=== PATIENT | male | born 1985 | race Caucasian/White ===

== ENCOUNTER 2019-10-18 21:39 | Emergency (ER) | payer OTHER ==
[~2019-10-18] VITALS: Ht 180.3 cm; Wt 117.9 kg
--- NOTE | 2019-10-19 02:18 | Diagnostic Imaging Report ---
KNEE RIGHT THREE VIEWS - 3 views HISTORY: Pain. COMPARISON: None available. FINDINGS: Bones: No acute displaced fracture. Osseous alignment is within normal limits. Joints: The joint spaces are well-maintained. Soft tissues: The soft tissues appear unremarkable. Questionable small right knee joint effusion. IMPRESSION: No acute radiographic abnormality. Signed by: Vik Irene MD on 10/19/2019 2:15 AM
--- NOTE | 2019-10-19 02:54 | Emergency Department Note ---
History of Present Illnes History of Present Illness Chief Complaint: Extremity Trauma/Pain History of Present Illness This is a 34 year old male arrives to the ED with complaints of right knee pain for several weeks. Patient's states when he went to the [facility] he was told metatarsal manipulative provided no further imaging. Patient states he was told to come to the emergency department for further workup.. Chief Complaint Comment 34 Y/O MALE PT AAOX3 PRESENTS TO THE ER C/O RT KNEE PAIN ONSET X3 WEEKS [employer]; PT STATES HE WAS AT THE [facility] LAST WEEK AND TOLD HE POSSIBLY HAS A TORN MINISCUS; PT STATES HE WAS TOLD TO COME TO THE ER IF PAIN WORSENED; NAD NOTED AT THIS TIME; RESP EVEN/UNLABORED; ER MD IN TRIAGE FOR INITIAL EVAL. Historian: Patient Arrival Mode: Car Onset (how long ago): week(s) Timing of current episode: intermittent Progression: unchanged Chronicity: recurrent Context: Denies trauma/injury Relieving factors: none Exacerbating factors: none Past Medical/Family History Physician Review I have reviewed the patient's past medical and family history. Any updates have been documented here. Past Medical History Recent Fever: No Clinical Suspicion of Infectio: No New/Unexplained Change in Ment: No Past Medical History: GERD Other Surgery: RT KNEE SX Social History Smoking Cessation: Current every day smoker Alcohol Use: Social Any Illegal Drug Use: No TB Exposure/Symptoms: No Physically hurt or threatened: No Other Last Tetanus: UTD Any Pre-Existing Lines (PICC,: No Is patient up to date on immun: Yes Last Flu: UTD Last Pneumovax: UNK Review of Systems Review of Systems Constitutional: Reports no symptoms EENTM: Reports no symptoms Cardiovascular: Reports no symptoms Respiratory: Reports no symptoms Gastrointestinal: Reports no symptoms Genitourinary: Reports no symptoms Musculoskeletal: Reports as per HPI, Reports joint pain, Reports muscle pain Integumentary: Reports no symptoms Neurological: Reports no symptoms Psychological: Reports no symptoms Endocrine: Reports no symptoms Hematological/Lymphatic: Reports no symptoms Physical Exam Related Data Allergies: Coded Allergies: No Known Allergies (Unverified , 10/19/19) Triage Vital Signs Vital Signs Date Time Temp Pulse Resp B/P (MAP) Pulse Ox O2 Delivery O2 Flow Rate FiO2 10/19/19 00:41 98.7 83 18 134/87 98 Vital signs reviewed: Yes Physical Exam CONSTITUTIONAL Constitutional: Present well-developed, Present well-nourished HENT HENT: Present normocephalic, Present atraumatic, Present oropharynx clear/moist, Present nose normal HENT L/R: Present left ext ear normal, Present right ext ear normal EYES Eyes: Reports PERRL, Reports conjunctivae normal NECK Neck: Present ROM normal PULMONARY Pulmonary: Present effort normal, Present breath sounds normal CARDIOVASCULAR Cardiovascular: Present regular rhythm, Present heart sounds normal, Present capillary refill normal, Present normal rate GASTROINTESTINAL Abdominal: Present soft, Present nontender, Present bowel sounds normal GENITOURINARY Genitourinary: Present exam deferred SKIN Skin: Present warm, Present dry MUSCULOSKELETAL Musculoskeletal: Present ROM normal (Limited range of motion and extension of right knee, normal valgus/varus stress test), Present tenderness; Absent swelling NEUROLOGICAL Neurological: Present alert, Present oriented x 3, Present no gross motor or sensory deficits PSYCHOLOGICAL Psychological: Present mood/affect normal, Present judgement normal Results Imaging Imaging results reviewed: Yes Assessment & Plan Medical Decision Making MDM 34-year-old male with atraumatic right knee pain, crepitus noted on exam, no concerns of a septic joint. X-ray unremarkable for any acute findings, patient given outpatient orthopedic follow-up for further workup and management Patient placed in a knee immobilizer prior to discharge. Assessment & Plan Final Impression: (1) Knee pain Depart Disposition: HOME, SELF-CARE Last Vital Signs Date Time Temp Pulse Resp B/P (MAP) Pulse Ox O2 Delivery O2 Flow Rate FiO2 10/19/19 00:41 98.7 83 18 134/87 98 ANGELA RAMSEY DO Oct 19, 2019 02:54
== END 2019-10-19 04:37 | disposition home or self-care (01) ==
LOC: ER 10-19 01:35
DX: M25.561 Pain in right knee (principal); K21.9 Gastro-esophageal reflux disease without esophagitis; F17.210 Nicotine dependence, cigarettes, uncomplicated
CPT/HCPCS: 99283

== ENCOUNTER 2020-06-06 17:46 | Emergency (ER) | payer OTHER ==
[~2020-06-06] VITALS: Ht 180.3 cm; Wt 106.6 kg
[2020-06-06] MEDS ORDERED: KETOROLAC TROMETHAMINE 60 MG/2 ML VIAL IM ONE (19:30)
[2020-06-06] MEDS ORDERED: KETOROLAC TROMETHAMINE 60 MG/2 ML VIAL ONE (19:58)
[2020-06-06] MEDS ORDERED: MORPHINE SULFATE INJ 4 MG/ML INJ 1ML IM STA (21:10)
[2020-06-06] MEDS ORDERED: MORPHINE SULFATE INJ 4 MG/ML INJ 1ML ONE (21:30)
[2020-06-06 21:43] VITALS: BP 168/91
== END 2020-06-06 21:43 | disposition home or self-care (01) ==
LOC: FSED 19:30
DX: M25.551 Pain in right hip (principal); W00.0XXA Fall on same level due to ice and snow, initial encounter; Y93.01 Activity, walking, marching and hiking; Y92.008 Other place in unspecified non-institutional (private) residence as the place of occurrence of the external cause; K21.9 Gastro-esophageal reflux disease without esophagitis; M17.0 Bilateral primary osteoarthritis of knee; M54.9 Dorsalgia, unspecified; G89.29 Other chronic pain; F17.210 Nicotine dependence, cigarettes, uncomplicated
CPT/HCPCS: 73521; 99283; J1885; J2270